=== PATIENT | male | born 1985 | race African-American/Black ===

== ENCOUNTER → 2019-10-18 | Outpatient (CLI) | payer OTHER | LOC: MHCPAIN 14:15 | DX: M47.817 Spondylosis without myelopathy or radiculopathy, lumbosacral region (principal); M54.5 Low back pain; M53.3 Sacrococcygeal disorders, not elsewhere classified; G89.29 Other chronic pain; M54.16 Radiculopathy, lumbar region | CPT/HCPCS: G0463 ==

== ENCOUNTER → 2019-10-20 | Outpatient (CLI) | payer OTHER | LOC: MHCPAIN 14:33 | DX: M47.817 Spondylosis without myelopathy or radiculopathy, lumbosacral region (principal); M54.5 Low back pain; M54.16 Radiculopathy, lumbar region | CPT/HCPCS: J1100; Q9967 ==